=== PATIENT | male | born 1940 | race Caucasian/White ===

== ENCOUNTER 2020-01-06 16:22 | Emergency (ER) | payer MEDICARE, OTHER ==
[2020-01-06] MEDS ORDERED: Sodium Chloride 0.9% 10 ML Syringe FLUSH PRN (17:10)
[2020-01-06] MEDS ORDERED: Vancomycin 2 GM in Dextrose 5% in Water 250 ML IV ONE ×2 (17:10)
[2020-01-06] MEDS ORDERED: Piperacillin/Tazobactam 4.5 GM in Sodium Chloride 0.9% 100 ML IV ONE (17:10)
[2020-01-06] MEDS ORDERED: Sodium Chloride 0.9% 1,000 ML IV ONE (17:10)
[2020-01-06] MEDS ORDERED: cefTRIAXone 2 GM in Sodium Chloride 0.9% 100 ML IV ONE (17:10)
[2020-01-06] MEDS ORDERED: Ondansetron 4 MG/2 ML SDV IVPUSH ONE (17:17)
[2020-01-06] MEDS ORDERED: Acetaminophen 325 MG Tab PO ONE (17:18)
--- NOTE | 2020-01-06 17:26 | EDM.PDOC ---
<Samira Mello - Last Filed: 01/06/20 17:31> ED HPI GENERAL MEDICAL PROBLEM - General Chief Complaint: Cardiovascular Problem Stated Complaint: RUNNING A TEMP Time Seen by Provider: 01/06/20 16:49 Source of Information: Reports: Patient, Significant Other History Limitations: Reports: No Limitations - History of Present Illness INITIAL COMMENTS - FREE TEXT/NARRATIVE: Patient is a pleasant 79-year-old gentleman who was brought to the ED from dialysis for hypotension, chills, and cough. Patient's states he has dialysis three times per week. Today when he was at dialysis he became very chilled, felt weak, and his cough was becoming more frequent. His reports two weeks ago he went to see his PCP in [place] and was either diagnosed with "walking" pneumonia or being treated prophylactically for pneumonia with an antibiotic for 14 days. Neither the nor the patient know for sure what antibiotic was prescribed, but the patient states he took the full course as prescribed, with the last dose being this morning. His states he had a repeat chest x-ray yesterday and they were told they had improved from the first x-ray two weeks ago. He reports he has been taking Mucinex DM for congestion and has been adding an extra nebulizer into his daily regimen. He denies chest pain, shortness of breath, nausea, vomiting, and diarrhea today. His states that he started developing a sore on each leg over the kennedy area about eight days ago. A blister started forming on each leg and grew in size, then a few days ago the right blister started draining and then the skin sloughed off and is now open. The right leg was bandaged on arrival, but the bandage, his compression sock, and pant leg was soaked. The left sore is covered by Mediplex and does not appear to be draining. Of note, while in the room obtaining the history the patient had an episode of emesis. He states it was brought on by coughing and felt some mucous in his throat. He still does not really feel nauseous. - Related Data Allergies Allergy/AdvReac Type Severity Reaction Status Date / Time Xsdkgym-Yci-Nks Reductase Allergy Difficulty Verified 09/30/18 12:18 Inhibitor Swallowing Past Medical History HEENT History: Reports: Cataract, Impaired Vision Other HEENT History: wears eyeglasses. Cardiovascular History: Reports: High Cholesterol, Hypertension Genitourinary History: Reports: Chronic Renal Insuffiency, Dialysis, UTI, Recurrent Musculoskeletal History: Reports: Fracture Other Musculoskeletal History: broken ribs. Endocrine/Metabolic History: Reports: Hypothyroidism Hematologic History: Reports: Anemia, Blood Transfusion(s) Oncologic (Cancer) History: Reports: Other (See Below) Other Oncologic History: skin cancer to bilateral hands and R) ear/face. Dermatologic History: Reports: Cellulitis - Infectious Disease History Infectious Disease History: Reports: Chicken Pox, Measles, Mumps, Shingles - Past Surgical History HEENT Surgical History: Reports: Cataract Surgery Cardiovascular Surgical History: Reports: Coronary Artery Bypass, Coronary Artery Stent GI Surgical History: Reports: Cholecystectomy, Colonoscopy Musculoskeletal Surgical History: Reports: Knee Replacement Social & Family History - Caffeine Use Caffeine Use: Reports: None ED ROS GENERAL - Review of Systems Review Of Systems: See Below Constitutional: Reports: Chills, Weakness, Decreased Appetite. Denies: Fever, Fatigue HEENT: Reports: No Symptoms. Denies: Ear Pain, Eye Pain, Sinus Problem, Throat Pain Respiratory: Reports: Cough (productive). Denies: Shortness of Breath, Wheezing Cardiovascular: Reports: Blood Pressure Problem (low blood pressure reported at dialysis. First reading in ED was 84/71. During assessment BP reading was 130/57 ), Edema (bilateral lower extremity edema). Denies: Chest Pain, Lightheadedness , Syncope GI/Abdominal: Denies: Abdominal Pain, Bloody Stool, Diarrhea, Nausea, Vomiting : Reports: Other (does not produce urine due to dialysis.) Musculoskeletal: Denies: Neck Pain, Back Pain, Muscle Pain Skin: Reports: Bruising (over billateral arms- states he bruises very easily), Wound (bilateral sores on kennedy area of each leg. Right leg is an open sore and left is a blister). Denies: Pallor, Rash, Erythema Neurological: Reports: No Symptoms. Denies: Dizziness, Headache, Numbness, Syncope, Tingling, Weakness Psychiatric: Reports: No Symptoms ED EXAM, GENERAL - Physical Exam Exam: See Below Exam Limited By: No Limitations General Appearance: Alert, WD/WN, Mild Distress Nose: Normal Inspection, Normal Mucosa, No Blood Throat/Mouth: Normal Lips, Normal Teeth, Normal Gums, Normal Voice, Other (dry mucous membranes) Head: Atraumatic, Normocephalic Neck: Normal Inspection, Supple, Non-Tender Respiratory/Chest: No Respiratory Distress, No Accessory Muscle Use, Chest Non- Tender, Decreased Breath Sounds (throughout lung goins), Rhonchi (throughout lung goins). No: Crackles, Rales, Wheezing Cardiovascular: Normal Peripheral Pulses, Regular Rate, Rhythm, No Murmur, Other (Bilateral lower extremity edema - 1+ pitting) GI/Abdominal: Normal Bowel Sounds, Soft, Non-Tender, No Organomegaly, No Distention Extremities: Non-Tender, Normal Capillary Refill, Pedal Edema (bilateral 1+ pitting, right more distinct than left) Neurological: Alert, Oriented, Normal Cognition, No Motor/Sensory Deficits Psychiatric: Normal Affect, Normal Mood Skin Exam: No Rash, Cool, Other (Left kennedy area has Mediplex bandage covering blister sore. Right leg has a 6cm x 9cm open sore that is draining serous fluid) Course - Vital Signs Last Recorded V/S: Last Vital Signs Temp 99.1 F 01/06/20 16:34 Pulse 73 01/06/20 16:34 Resp 26 H 01/06/20 16:34 BP 84/71 L 01/06/20 16:34 Pulse Ox 85 L 01/06/20 16:34 - Orders/Labs/Meds Orders: Active Orders 24 hr Category Date Time Status Chest 1V Frontal [CR] Stat Exams 01/06/20 17:10 Taken CULTURE BLOOD [BC] Stat Lab 01/06/20 16:55 Received CULTURE BLOOD [BC] Stat Lab 01/06/20 17:25 Received REFLEX LACTIC ACID YES OR NO [CHEM] Routine Lab 01/06/20 17:37 Received Lactated Ringers [Ringers, Lactated] 1,000 ml Med 01/06/20 17:48 Active IV .BOLUS Sodium Chloride 0.9% [Normal Saline] 1,000 ml Med 01/06/20 17:10 Active IV BOLUS Sodium Chloride 0.9% [Saline Flush] Med 01/06/20 17:10 Active 10 ml FLUSH ASDIRECTED PRN Vancomycin 2 gm Med 01/06/20 17:10 Active Dextrose 5% in Water 250 ml IV ONETIME cefTRIAXone [Rocephin] 2 gm Med 01/06/20 17:52 Active Sodium Chloride 0.9% [Normal Saline] 100 ml IV STAT Blood Culture x2 Reflex Set [OM.PC] Stat Oth 01/06/20 17:11 Ordered Saline Lock Insert [OM.PC] Stat Oth 01/06/20 17:11 Ordered Severe Sepsis Onset Time [OM.PC] Stat Ot 01/06/20 17:11 Ordered Medication Orders Sodium Chloride (Normal Saline) 1,000 mls @ 500 mls/hr IV BOLUS ONE Stop: 01/06/20 19:09 Last Admin: 01/06/20 17:58 Dose: 500 mls/hr Vancomycin HCl 2 gm/ Dextrose/ (Water) 250 mls @ 167 mls/hr IV ONETIME ONE Stop: 01/06/20 18:39 Ceftriaxone Sodium 2 gm/ (Sodium Chloride) 100 mls @ 200 mls/hr IV STAT STA Stop: 01/06/20 18:21 Last Admin: 01/06/20 18:00 Dose: 200 mls/hr Lactated Ringer's (Ringers, Lactated) 1,000 mls @ 1,000 mls/hr IV .BOLUS ONE Stop: 01/06/20 18:47 Sodium Chloride (Saline Flush) 10 ml FLUSH ASDIRECTED PRN PRN Reason: Keep Vein Open Labs: Laboratory Tests 01/06/20 01/06/20 01/06/20 Range/Units 16:55 16:55 16:55 WBC 18.12 H (4.23-9.07) K/mm3 RBC 3.43 L (4.63-6.08) M/mm3 Hgb 11.8 L D (13.7-17.5) gm/dl Hct 36.4 L (40.1-51.0) % MCV 106.1 H D (79.0-92.2) fl MCH 34.4 H (25.7-32.2) pg MCHC 32.4 (32.2-35.5) g/dl RDW Std Deviation 58.2 H (35.1-43.9) fL Plt Count 78 L (163-337) K/mm3 MPV 10.3 (9.4-12.3) fl Neutrophils % (Manual) 43 (40-60) % Band Neutrophils % 0 (0-10) % Lymphocytes % (Manual) 44 H (20-40) % Atypical Lymphs % 0 % Monocytes % (Manual) 7 (2-10) % Eosinophils % (Manual) 6 (0.8-7.0) % Basophils % (Manual) 0 L (0.2-1.2) Nucleated RBCs 3.0 % Platelet Estimate Decreased Polychromasia 2+ moderate Anisocytosis 2+ moderate Macrocytosis 2+ moderate RBC Morph Comment Abnormal PT 14.6 H (9.7-12.0) SECONDS INR 1.36 Sodium 140 (136-145) mEq/L Potassium 4.4 D (3.5-5.1) mEq/L Chloride 98 (98-107) mEq/L Carbon Dioxide 26 (21-32) mEq/L Anion Gap 20.4 H (5-15) BUN 20 H D (7-18) mg/dL Creatinine 3.1 H D (0.7-1.3) mg/dL Est Cr Clr Drug Dosing TNP Estimated GFR (MDRD) 20 (>60) mL/min BUN/Creatinine Ratio 6.5 L (14-18) Glucose 145 H (83-115) mg/dL Lactic Acid (0.4-2.0) mmol/L Calcium 8.9 (8.5-10.1) mg/dL Total Bilirubin 1.2 H (0.2-1.0) mg/dL AST 22 (15-37) U/L ALT 26 (16-63) U/L Alkaline Phosphatase 373 H (46-116) U/L C-Reactive Protein 10.8 H* (<1.0) mg/dL Total Protein 6.9 (6.4-8.2) g/dl Albumin 3.1 L (3.4-5.0) g/dl Globulin 3.8 gm/dL Albumin/Globulin Ratio 0.8 L (1-2) 01/06/20 Range/Units 16:55 WBC (4.23-9.07) K/mm3 RBC (4.63-6.08) M/mm3 Hgb (13.7-17.5) gm/dl Hct (40.1-51.0) % MCV (79.0-92.2) fl MCH (25.7-32.2) pg MCHC (32.2-35.5) g/dl RDW Std Deviation (35.1-43.9) fL Plt Count (163-337) K/mm3 MPV (9.4-12.3) fl Neutrophils % (Manual) (40-60) % Band Neutrophils % (0-10) % Lymphocytes % (Manual) (20-40) % Atypical Lymphs % % Monocytes % (Manual) (2-10) % Eosinophils % (Manual) (0.8-7.0) % Basophils % (Manual) (0.2-1.2) Nucleated RBCs % Platelet Estimate Polychromasia Anisocytosis Macrocytosis RBC Morph Comment PT (9.7-12.0) SECONDS INR Sodium (136-145) mEq/L Potassium (3.5-5.1) mEq/L Chloride (98-107) mEq/L Carbon Dioxide (21-32) mEq/L Anion Gap (5-15) BUN (7-18) mg/dL Creatinine (0.7-1.3) mg/dL Est Cr Clr Drug Dosing Estimated GFR (MDRD) (>60) mL/min BUN/Creatinine Ratio (14-18) Glucose (83-115) mg/dL Lactic Acid 8.1 H* (0.4-2.0) mmol/L Calcium (8.5-10.1) mg/dL Total Bilirubin (0.2-1.0) mg/dL AST (15-37) U/L ALT (16-63) U/L Alkaline Phosphatase (46-116) U/L C-Reactive Protein (<1.0) mg/dL Total Protein (6.4-8.2) g/dl Albumin (3.4-5.0) g/dl Globulin gm/dL Albumin/Globulin Ratio (1-2) Meds: Medications Generic Name Dose Route Start Last Admin Trade Name Teraq PRN Reason Stop Dose Admin Sodium Chloride 1,000 mls @ 500 mls/hr 01/06/20 17:10 01/06/20 17:58 Normal Saline IV 01/06/20 19:09 500 mls/hr BOLUS ONE Administration Vancomycin HCl 2 gm/ Dextrose/ 250 mls @ 167 mls/hr 01/06/20 17:10 Water IV 01/06/20 18:39 ONETIME ONE Ceftriaxone Sodium 2 gm/ 100 mls @ 200 mls/hr 01/06/20 17:52 01/06/20 18:00 Sodium Chloride IV 01/06/20 18:21 200 mls/hr STAT STA Administration Lactated Ringer's 1,000 mls @ 1,000 mls/hr 01/06/20 17:48 Ringers, Lactated IV 01/06/20 18:47 .BOLUS ONE Sodium Chloride 10 ml 01/06/20 17:10 Saline Flush FLUSH ASDIRECTED PRN Keep Vein Open Discontinued Medications Generic Name Dose Route Start Last Admin Trade Name Freq PRN Reason Stop Dose Admin Acetaminophen 975 mg 01/06/20 17:18 Tylenol PO 01/06/20 17:19 NOW ONE Ceftriaxone Sodium Confirm 01/06/20 17:52 01/06/20 18:02 Rocephin Administered 01/06/20 17:53 Not Given Dose 2 gm IV .STK-MED ONE Ceftriaxone Sodium 2 gm/ 100 mls @ 200 mls/hr 01/06/20 17:10 Sodium Chloride IV 01/06/20 17:39 STAT ONE Piperacillin Sod/Tazobactam 100 mls @ 200 mls/hr 01/06/20 17:10 Sod 4.5 gm/ Sodium Chloride IV 01/06/20 17:39 STAT ONE Ondansetron HCl 4 mg 01/06/20 17:17 01/06/20 17:49 Zofran IVPUSH 01/06/20 17:18 4 mg ONETIME ONE Administration Departure - Departure Disposition: Home, Self-Care 01 Clinical Impression: End stage renal failure on dialysis, Hypoxia Pneumonia Qualifiers: Pneumonia type: due to unspecified organism Laterality: right Lung location: middle lobe of lung Qualified Code(s): J18.9 - Pneumonia, unspecified organism Sepsis Qualifiers: Sepsis type: sepsis due to unspecified organism Sepsis acute organ dysfunction status: unspecified Qualified Code(s): A41.9 - Sepsis, unspecified organism Referrals: PCP,Not In Area [Primary Care Provider] - Forms: ED Department Discharge Sepsis Event Note - Evaluation Sepsis Screening Result: No Definite Risk - Focused Exam Vital Signs: Vital Signs Temp Pulse Resp BP Pulse Ox 01/06/20 16:34 99.1 F 73 26 H 84/71 L 85 L Date Exam was Performed: 01/06/20 Time Exam was Performed: 17:32 - My Orders Last 24 Hours: My Active Orders 01/06/20 16:55 CULTURE BLOOD [BC] Stat 01/06/20 17:10 Chest 1V Frontal [CR] Stat Sodium Chloride 0.9% [Normal Saline] 1,000 ml IV BOLUS Sodium Chloride 0.9% [Saline Flush] 10 ml FLUSH ASDIRECTED PRN Vancomycin 2 gm Dextrose 5% in Water 250 ml IV ONETIME 01/06/20 17:11 Blood Culture x2 Reflex Set [OM.PC] Stat Saline Lock Insert [OM.PC] Stat Severe Sepsis Onset Time [OM.PC] Stat 01/06/20 17:25 CULTURE BLOOD [BC] Stat 01/06/20 17:37 REFLEX LACTIC ACID YES OR NO [CHEM] Routine 01/06/20 17:48 Lactated Ringers [Ringers, Lactated] 1,000 ml IV .BOLUS 01/06/20 17:52 cefTRIAXone [Rocephin] 2 gm Sodium Chloride 0.9% [Normal Saline] 100 ml IV STAT - Assessment/Plan Last 24 Hours: My Active Orders 01/06/20 16:55 CULTURE BLOOD [BC] Stat 01/06/20 17:10 Chest 1V Frontal [CR] Stat Sodium Chloride 0.9% [Normal Saline] 1,000 ml IV BOLUS Sodium Chloride 0.9% [Saline Flush] 10 ml FLUSH ASDIRECTED PRN Vancomycin 2 gm Dextrose 5% in Water 250 ml IV ONETIME 01/06/20 17:11 Blood Culture x2 Reflex Set [OM.PC] Stat Saline Lock Insert [OM.PC] Stat Severe Sepsis Onset Time [OM.PC] Stat 01/06/20 17:25 CULTURE BLOOD [BC] Stat 01/06/20 17:37 REFLEX LACTIC ACID YES OR NO [CHEM] Routine 01/06/20 17:48 Lactated Ringers [Ringers, Lactated] 1,000 ml IV .BOLUS 01/06/20 17:52 cefTRIAXone [Rocephin] 2 gm Sodium Chloride 0.9% [Normal Saline] 100 ml IV STAT <Romeo Chester - Last Filed: 01/06/20 18:34> Course - Re-Assessments/Exams Free Text/Narrative Re-Assessment/Exam: 01/06/20 18:11 I examined the patient myself and I agree with Samira's assessment and plan. I ordered oxygen, IV NS 30ml/kg which is 2640mls, CXR, labs, blood cultures, lactic acid with reflex, rocephin 2 grams, vancomycin 2 grams IV and zosyn 4.5grams IV. The patient is in severe sepsis. His CXR shows a RML infiltrate. His WBC was elevated at 18.2. His Hgb was low at 11.8. his platelets are low at 78. His INR was normal at 1.36. His anion gap is elevated at 20.4. His creatinine is elevated at 3.1. His BUN is elevated at 20. His glucose is elevated at 145. His lactic acid was elevated at 8.1. His total bili is elevated at 1.2. His alk phos is elevated at 372. His CRP is elevated at 10.8. I did a sepsis focused assessment after the bolus was going and he was improving. His blood pressure was 143 systolic. He feels better. He is severe sepsis and pneumonia. I feel he needs to be admitted. He cannot be admitted here because he is a dialysis patient. I called [facility] in [place] and talked with Dr Hines and the patient was accepted for transfer. Departure - Departure Time of Disposition: 18:35 Condition: Serious Sepsis Event Note - Focused Exam Date Exam was Performed: 01/06/20 Time Exam was Performed: 18:11
[2020-01-06] MEDS ORDERED: Lactated Ringers 1,000 ML IV ONE (17:48)
[2020-01-06] MEDS ORDERED: cefTRIAXone 2 GM AdvVial IV ONE ×2 (17:52→18:41)
[2020-01-06] MEDS ORDERED: cefTRIAXone 2 GM in Sodium Chloride 0.9% 100 ML IV STA (17:52)
--- NOTE | 2020-01-06 18:22 | CR ---
Chest: Portable view of the chest was obtained. Comparison: No prior chest imaging. Heart is enlarged. Sternotomy noted. AICD is present. Lungs show no acute parenchymal change. Minimal pulmonary vascular congestion is seen. Possible small bilateral pleural effusions. Impression: 1. Findings suspicious for mild CHF. 2. No other acute abnormality is appreciated. Diagnostic code #3 This report was dictated in [place] Standard Time
[2020-01-06] MEDS ORDERED: Sodium Chloride 0.9% 500 ML ONE (18:42)
[2020-01-06] MEDS ORDERED: Vancomycin 2 GM in Sodium Chloride 0.9% 500 ML IV ONE (18:45)
== END 2020-01-06 19:14 | disposition home or self-care (01) ==
LOC: JD.ED 16:22
DX: A41.9 Sepsis, unspecified organism (principal); J18.9 Pneumonia, unspecified organism; I12.0 Hypertensive chronic kidney disease with stage 5 chronic kidney disease or end stage renal disease; N18.6 End stage renal disease; R09.02 Hypoxemia; S80.822A Blister (nonthermal), left lower leg, initial encounter; Z88.8 Allergy status to other drugs, medicaments and biological substances; Z99.2 Dependence on renal dialysis; X58.XXXA Exposure to other specified factors, initial encounter
CPT/HCPCS: 36415; 71045; 80053; 83605; 85007; 85027; 85610; 86140; 87040; 96365; 96367; 96375; 99285; A9270; J0696; J2405; J2543; J3370; J7030; J7040; J7050; J7120